=== PATIENT | female | born 1995 ===

== ENCOUNTER 2024-09-21 14:40 | Outpatient (AMB) | payer OTHER, SELFPAY ==
[2024-09-21 15:17] VITALS: BP 122/76; PULSE 80; TEMP 37.1; O2SAT 98; BMI 27.8
--- NOTE | 2024-09-21 15:17 | MHC.OFFWIV ---
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 Sore throat, rash, cough Patient Tobacco Use Status: Current someday Tobacco user Allergies No Known Allergies Allergy (Verified 09/21/24 15:18) Do you need a note to return to daycare/school/sports/work: No HPI HPI Comments History of Present Illness Details Mother in law is with pt + rash under arm bilaterally; axilla x 1 week No drainage + itchy, no pain Tried antifungal cream OTC without relief She goes to the gym and is unsure if she picked something up there She also said + ST Ongoing x yesterday No fever or chills + minimal congestion without cough PFSH Social History Patient Tobacco Use Status: Current someday Tobacco user Review of Systems Const Denies chills and Denies fever(s) Eyes Denies exophthalmos ENT Denies otalgia, Reports nasal discharge and Reports sore throat Card Denies chest pain Resp Denies cough Musc Denies myalgias Skin/Breast Reports pruritus and Reports rash Physical Exam Vital Signs: Last Vital Signs Temp 98.7 F 09/21/24 15:17 Pulse 80 09/21/24 15:17 BP 122/76 09/21/24 15:17 Pulse Ox 98 09/21/24 15:17 BMI result Body Mass Index 27.8 General: Non-toxic, NAD. Speaking full sentences. Skin: Warm dry throughout Pt has 2 well defined circular dry slightly erythematous lesions to bilateral axilla. All are non-tender approx 1cm x 1cm, raised borders with slight shine HENT: Airway patent. Uvula midline. No pharyngeal erythema or edema. 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 MSK: Full ROM extremities. Neurology: Alert. No aphasia or facial droop. Gait without abnormality Psych: Good mood and affect Results AMB Rapid Strep AMB Rapid Strep Negative Last Edit by VIANNEY Arriaga on 09/21/24 15:33 Results Reviewed Results Reviewed: Laboratory Last Values Strep Scn Rapid Clinic Negative 09/21/24 15:32 Assessment & Plan Assessment & Plan (1) Tinea corporis: Code(s): B35.4 - Tinea corporis Plan: + fungal rash on exam Discussed prescription cream for area Pat dry after shower (2) Pharyngitis: Code(s): J02.9 - Acute pharyngitis, unspecified Qualifiers: Pharyngitis/tonsillitis etiology: unspecified etiology Qualified Code(s): J02.9 - Acute pharyngitis, unspecified Plan: Viral etiology Strep negative Orders: Orders AMB Rapid Strep Screen Today Z13.9 - Encounter for screening, unspecified Medications: New clotrimazole-betamethasone 1-0.05 % Avoid face, genitals 1 appl topical BID 30 mL 1RF 2 weeks Coding Level of Care Code Est Pt Level 3 (99141) Diagnoses Tinea corporis B35.4 Pharyngitis, unspecified etiology J02.9 Pharyngitis/tonsillitis etiology: unspecified etiology
== END 2024-09-21 15:38 | disposition home or self-care (01) ==
PROVIDERS: Visit Provider Physician Assistant
DX: B35.4 Tinea corporis (principal); J02.9 Acute pharyngitis, unspecified; Z13.9 Encounter for screening, unspecified

== ENCOUNTER → 2024-09-21 14:40 | Outpatient (BNVA) | payer OTHER, SELFPAY | PROVIDERS: Visit Provider Physician Assistant | DX: J02.9 Acute pharyngitis, unspecified (principal); B35.4 Tinea corporis | CPT/HCPCS: 87880; 99212 ==